=== PATIENT | male | born 1975 | race Caucasian/White ===

== ENCOUNTER 2023-03-09 12:46 | Outpatient (AMB) | payer OTHER, SELFPAY ==
--- NOTE | 2023-03-09 13:13 | MHC.PC.OV ---
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 Note: Pt is here to [facility] care and needs PE Allergies No Known Allergies Allergy (Verified 03/09/23 13:17) Medication List - Last Reconciled 03/09/23 by Carmen Flores MD No Known Home Meds Tobacco use date assessed: 03/09/23 Dental Screening Dental Screen Date: 03/09/23 Did you have a dental visit in the last 12 months?: Yes Did you have a dental problem in the last 6 months where you did not have access to dental care?: No Was dental information given to patient?: 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 Patient has a history of hypertension but try medication only for one day (unknown name) and developed side effects. Patient reports feeling out of breath with physical activity like walking up the stairs getting more worse over last few month. Patient denies cough PND orthopnea chest pain palpitations. 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 PFSH Family History (Updated 03/09/23 @ 13:51 by Carmen Flores MD) Father CAD (coronary artery disease), Onset Age: 75 Mother No problems noted. Social History (Updated 03/09/23 @ 13:53 by Carmen Folres MD) Household Members Other:: , 4 adult children, Housing: House Patient Tobacco Use Status: Former Tobacco user e-Cigarette/Vaping Use: Never Used Current occupational status: employed Current occupation: Currently and [employer] Cognitive needs: No Hearing needs: No Vision needs: No Review of Systems Const All systems reviewed & are unremarkable except as noted in HPI and below Reports no additional complaints Eyes Reports no additional complaints ENT Reports no additional complaints Card Reports no additional complaints Resp Reports no additional complaints GI Reports no additional complaints Reports no additional complaints Physical exam (Primary Care) Vital Signs: Last Vital Signs Pulse 84 03/09/23 13:15 BP 150/88 H 03/09/23 13:15 Pulse Ox 97 03/09/23 13:15 Oxygen Delivery Method Room Air 03/09/23 13:15 BMI result Body Mass Index 27.9 Tobacco/Smoking Status: Tobacco use Status Tobacco use date assessed 03/09/23 03/09/23 13:19 Patient Tobacco Use Status Former Tobacco user 03/09/23 13:53 e-Cigarette/Vaping Use Never Used 03/09/23 13:53 Const General: no acute distress HENMT Head: Yes normal to inspection Ears: hearing grossly normal bilaterally Face and sinus: Yes normal facial exam Eyes General: appearance normal, both eyes and all related structures Neck Neck: Yes no lymphadenopathy and Yes supple Resp Effort & Inspection: normal respiratory effort Auscultation: clear to auscultation bilaterally Cardio Rhythm: regular rhythm Heart sounds: S1 normal heart sound present and S2 normal heart sound present GI Inspection: Yes normal to inspection Palpation (GI): Soft to palpation Percussion: Yes normal to percussion Auscultation: normal bowel sounds Skin Other: Dysplastic nevi skin lesions on the back Assessment and Plan Assessment & Plan (1) Dysplastic nevi: Code(s): D23.9 - Other benign neoplasm of skin, unspecified Plan: Referred to dermatology (2) Annual physical exam: Code(s): Z00.00 - Encounter for general adult medical examination without abnormal findings Plan: Well-balanced diet regular physical activity discussed with the patient he will return for fasting blood work. 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 EKG showed normal sinus rhythm LVH. Echocardiogram will be obtained for symptoms of dyspnea on exertion to rule out wall motion abnormalities evaluate for ejection fraction. Start 5 mg of Olmesartan. Follow-up in 1 month (7) GRAJEDA (dyspnea on exertion): Code(s): R06.09 - Other forms of dyspnea Plan: Obtain echo (8) LVH (left ventricular hypertrophy): Code(s): I51.7 - Cardiomegaly Orders: Orders Comprehensive [place]. Panel Fast Today Z00.00 - Encounter for general adult medical examination without abnormal findings Complete Blood Count Auto Diff Today Z00.00 - Encounter for general adult medical examination without abnormal findings UA w Microscopic Today Z00.00 - Encounter for general adult medical examination without abnormal findings CA echo transthoracic complete Today I10 - Essential (primary) hypertension, I51.7 - Cardiomegaly, R06.09 - Other forms of dyspnea Lipid Panel Today Z00.00 - Encounter for general adult medical examination without abnormal findings PSA,Total (Free>4and<10) Today Z00.00 - Encounter for general adult medical examination without abnormal findings TSH reflex Free T4 Today Z00.00 - Encounter for general adult medical examination without abnormal findings AMB EKG-In Office Today I10 - Essential (primary) hypertension, I51.7 - Cardiomegaly, R06.09 - Other forms of dyspnea Referrals Dermatology Referral D23.9 - Other benign neoplasm of skin, unspecified, Z00.00 - Encounter for general adult medical examination without abnormal findings Gastroenterology Referral Z00.00 - Encounter for general adult medical examination without abnormal findings Medications: New hydrocortisone 2.5% (Proctosol HC) 1 appl [place] BID-QID PRN 30 grams 3RF hemorrhoids olmesartan 5 mg PO DAILY 30 tabs 1RF Coding Level of Care Code New Pt Prev Care 40-64y(91101) Diagnoses Dysplastic nevi D23.9 Annual physical exam Z00.00 S/P hernia surgery Z98.890; Z87.19 Hx of colonoscopy Z98.890 External bleeding hemorrhoids K64.4 HTN (hypertension) I10 GRAJEDA (dyspnea on exertion) R06.09 LVH (left ventricular hypertrophy) I51.7
[2023-03-09 13:15] VITALS: BP 150/88; PULSE 84; O2SAT 97; BMI 27.9
== END 2023-03-09 14:25 | disposition home or self-care (01) ==
PROVIDERS: Visit Provider Internal Medicine
DX: D23.9 Other benign neoplasm of skin, unspecified (principal); Z00.00 Encounter for general adult medical examination without abnormal findings; Z98.890 Other specified postprocedural states; Z87.19 Personal history of other diseases of the digestive system; K64.4 Residual hemorrhoidal skin tags; I10 Essential (primary) hypertension; R06.09 Other forms of dyspnea; I51.7 Cardiomegaly
CPT/HCPCS: 99386

== ENCOUNTER → 2023-03-30 13:34 | Outpatient (REF) | payer OTHER, SELFPAY ==
--- NOTE | 2023-03-30 13:40 | CA_ITS ---
Transthoracic Echocardiogram Patient (Last, First, Middle): Florencia Christian, Gender: Male Date of : 1975 Age: 47 Procedure Date: 03/30/2023 Procedure Type: Transthoracic Echocardiogram Location: OP Height: 182.88 cm Weight: 90.72 kg BSA: 2.13 m2 Heart Rate: bpm BP: 154 / 84 mmHg Morgue Technician: BLAIRE Referring MD: Carmen Flores MD Recreation Leader: Kirit Lee MD Symptoms: I10 - Essential (primary) hypertension Study Quality: Adequate ECG Rhythm: Sinus Conclusions: - Essentially normal study Findings Left Ventricle Normal left ventricular size, thickness, and systolic function. The visually estimated ejection fraction is between 60-65%. Spectral Doppler is indicative of a normal filling pattern. Peak GLS is -17.0%, borderline low. Right Ventricle Normal right ventricular cavity size and systolic function. Atria Both atria are normal in size. Interatrial shunt cannot be excluded. Aortic Valve The aortic valve structure and function is likely normal. There is no aortic valve stenosis. There is no aortic valve regurgitation. Mitral Valve Normal mitral valve structure and function. There is trace mitral valve regurgitation. There is no mitral valve stenosis. Pulmonic Valve The pulmonic valve is likely normal. Tricuspid Valve Likely normal tricuspid valve structure and function. Tricuspid regurgitation envelope is inadequate for calculation of right ventricular systolic pressure. Normal right atrial pressure. Great Vessels All visible segments of the aorta are normal in size. The pulmonary artery was not well visualized. Venous The inferior vena cava is normal in size and collapses greater than 50% with inspiration. Pericardium/Pleural There is no evidence of pericardial effusion. Prior Study Comparison No prior study available for comparison. Measurements 2D Linear Measurements IVSd: 0.88 0.6-0.9/0.6-1.0 cm LVIDd: 5.33 3.9-5.3/4.2-5.9 cm LVIDd Index: 2.50 2.4-3.2/2.2-3.1 cm/m2 LVIDs: 3.00 2.0-3.6 cm LVPWd: 0.80 0.7-1.1 cm LA Diam: 3.20 2.7-3.8/3.0-4.0 cm LAIDs Index: 1.50 1.5-2.3 cm/m2 LV Mass: 199.24 67-162/88-224 g LV Mass Index: 93.54 43-95/49-115 g/m2 LVOT Diam: 2.10 3.0+(-)1.3 cm 2D Systolic Function EF 4C: 59.30 >55% EF 2C: 64.50 >55% EF BiP: 62.90 >55% Mitral Valve MV Pk E: 0.67 MV PK A: 0.63 MV Decel Time: 182.00 E/A: 1.10 E'Lateral: 10.70 E'Medial: 8.05 E/E' Med: 8.40 E/E' Lat: 6.30 PHT: 53.00 MVA PHT: 4.15 Decel Orange: 3.69 Aortic Valve AoV Pk Daniel: 1.40 AoV Mn Daniel: 0.94 AoV VTI: 0.29 AoV Pk Grad: 8.00 Aov Mn Grad: 4.00 SCAR Cont.VTI: 2.27 LVOT LVOT Pk Daniel: 0.96 LVOT Mn Daniel: 0.63 LVOT VTI: 0.19 LVOT Pk Grad: 4.00 LVOT Mn Grad: 2.00 LVOT Diam: 2.10 LVOT Area: 3.46 Diastolic Function MV Pk E: 0.67 MV Pk A: 0.63 E/A: 1.10 E'Medial: 8.05 E/E' Med: 8.40 E' Laterial: 10.70 E/E' Lat: 6.30 Right Ventricle TAPSE (mm): 26.10 TVS' Daniel: 12.10 Tricuspid Valve RA Press: 8.00 Great Vessels Aorta Sinus of Valsalva: 4.06 2.0-3.[address] [place]: 3.13 1.7-3.4 cm Ao Asc: 3.40 2.1-3.4 cm Ao Arch: 2.40 Updated in Other Vendor System with Status of Final Kirit Lee MD electronically signed on 03/31/2023 4:15:34 PM with status of Final
== END ==
LOC: HO.CARD 13:34
PROVIDERS: Visit Provider Internal Medicine
DX: I10 Essential (primary) hypertension (principal); R06.09 Other forms of dyspnea; I51.7 Cardiomegaly
CPT/HCPCS: 93306; 93356

== ENCOUNTER → 2023-03-30 13:40 | Outpatient (BNV) | payer OTHER, SELFPAY | PROVIDERS: Visit Provider Internal Medicine Cardiovascular Disease | DX: I51.7 Cardiomegaly (principal) | CPT/HCPCS: 93306 ==

== ENCOUNTER 2023-04-09 06:34 | Outpatient (REF) | payer OTHER, SELFPAY ==
[2023-04-09 11:00] LABS: MANUAL DIFF FLAG NO
[2023-04-09 11:02] LABS: Basophils Percent Auto 0.7 % (0-2); Eosinophils Absolute Auto 0.1 X10*3/uL (0.0-0.4); Eosinophils Percent Auto 1.7 % (0-4); Hematocrit 44.3 % (42.0-52.0); Hemoglobin 14.8 g/dl (14.0-18.0); Imm Gran Abs Auto 0.01 X10*3/uL (0.00-0.03); Imm Gran Pct Auto 0.2 % (0.0-0.4); Lymphocytes Absolute Auto 1.6 X10*3/uL (1.2-4.9); Lymphocytes Percent Auto 39.3 % (20-40); Mean Corpuscular HGB Conc 33.4 g/dl (31.0-36.0); Mean Corpuscular Hemoglobin 29.7 pg (27.0-33.0); Mean Platelet Volume 10.5 fL (9.4-12.4); Monocytes Absolute Auto 0.3 X10*3/uL (0.1-1.2); Monocytes Percent Auto 7.5 % (2-11); Neutrophils Absolute Auto 2.1 x10*3/uL (2.0-8.3); Neutrophils Percent Auto 50.6 % (45-73); Platelet Count 223 X10*3/uL (160-400); Red Blood Count 4.98 X10*6/uL (4.60-5.80); Red Cell Distribution Width 11.7 % (11.0-16.0); White Blood Count 4.2 X10*3/uL (4.8-10.8)
[2023-04-09 11:19] LABS: Appearance Urine Clear; Color Urine Yellow; Glucose Urine UA Negative (Negative); Leukocyte Esterase Urine Negative (Negative); Nitrite Urine Negative (Negative); PH 5.5 (5.0-9.0); Urine Blood Negative (Negative); Urine Ketones Trace mg/dL (Negative); Urine Protein Negative (Neg-Trace)
[2023-04-09 11:23] LABS: Alanine Aminotransferase 52 U/L (0-40); Albumin Level 4.4 g/dL (3.5-5.0); Alkaline Phosphatase 60 U/L (39-117); Anion Gap 16 (12-20); Aspartate Amino Transferase 30 U/L (5-37); Bilirubin Total 0.6 mg/dL (0.0-1.0); Blood Urea Nitrogen 15 mg/dL (9-16); Calcium 9.8 mg/dL (8.4-10.2); Carbon Dioxide 26 mmol/L (22-29); Chloride 104 mmol/L (96-108); Cholesterol 265 mg/dL (<200); Estimated Glomerular Filt Rate > 60; Glucose Fasting 89 mg/dL (60-99); HDL Cholesterol 50 mg/dL (>40); LDL Cholesterol Calculated 176 mg/dL (<100); Potassium 3.9 mmol/L (3.3-5.1); Sodium 142 mmol/L (135-145); Total Protein 7.2 g/dL (6.5-8.0); Triglycerides 199 mg/dL (<150)
[2023-04-09 11:26] LABS: Bacteria Urine None Seen (None Seen); Hyaline Casts Urine 0-2 /LPF (0-2); RBC Urine 0-2 /HPF (0-2); Squamous Epithelial Cell Urine 0-2 /HPF (0-2); WBC Urine 0-5 /HPF (0-5)
[2023-04-09 11:40] LABS: TSH reflex Free T4 0.88 uIU/mL (0.32-4.0)
[2023-04-09 11:42] LABS: PSA,Total (Free>4and<10) 0.59 ng/mL (0.00-4.00)
== END 2023-04-09 06:35 | disposition home or self-care (01) ==
LOC: HO.HMGCLDS 06:34
PROVIDERS: PCP Internal Medicine; Visit Provider Internal Medicine
DX: Z00.00 Encounter for general adult medical examination without abnormal findings (principal); Z12.5 Encounter for screening for malignant neoplasm of prostate
CPT/HCPCS: 36415; 80053; 80061; 81001; 84153; 84443; 85025

== ENCOUNTER 2023-04-14 14:03 | Outpatient (AMB) | payer OTHER, SELFPAY ==
[2023-04-14 14:23] VITALS: BP 124/76; PULSE 89; O2SAT 98; BMI 27.8
--- NOTE | 2023-04-14 14:23 | A.OFFPC_ITS ---
Vital Signs 04/14/23 14:23 Height 6 ft Weight 205 lb BMI 27.8 BP 124/76 Blood Pressure Location Lt brachial Position Sitting Pulse 89 Pulse Source Pulse Oximeter Pulse Oximetry (%) 98 Oxygen Delivery Method Room Air Intake Visit Reasons: 1 month follow up Intake Note: Pt is here today for 1 month follow up visit on BP. Allergies No Known Allergies Allergy (Verified 04/14/23 14:24) Medication List - Last Reconciled 04/14/23 by Carmen Flores MD hydrocortisone 2.5% (Proctosol HC) 1 appl [place] BID-QID PRN olmesartan 5 mg PO DAILY Tobacco use date assessed: 03/09/23 HPI 1 month follow up HPI Details Patient presents for the follow-up on hypertension controlled on olmesartan. Patient had echocardiogram which showed normal ejection fraction and trace mitral regurgitation. [facility] Family History Father CAD (coronary artery disease), Onset Age: 75 Mother No problems noted. Social History (Updated 03/09/23 @ 13:53 by Carmen Flores MD) Household Members Other:: , 4 adult children, Housing: House Patient Tobacco Use Status: Former Tobacco user e-Cigarette/Vaping Use: Never Used Current occupational status: employed Current occupation: [employer] Cognitive needs: No Hearing needs: No Vision needs: No Review of Systems Const All systems reviewed & are unremarkable except as noted in HPI and below Reports no additional complaints Eyes Reports no additional complaints ENT Reports no additional complaints Card Reports no additional complaints Resp Reports no additional complaints GI Reports no additional complaints Reports no additional complaints Physical exam (Primary Care) Vital Signs: Last Vital Signs Pulse 89 04/14/23 14:23 BP 124/76 04/14/23 14:23 Pulse Ox 98 04/14/23 14:23 Oxygen Delivery Method Room Air 04/14/23 14:23 BMI result Body Mass Index 27.8 Tobacco/Smoking Status: Tobacco use Status Tobacco use date assessed 03/09/23 04/14/23 14:26 Patient Tobacco Use Status Former Tobacco user 04/14/23 14:26 e-Cigarette/Vaping Use Never Used 04/14/23 14:26 Const General: no acute distress HENMT Face and sinus: Yes normal facial exam Eyes General: appearance normal, both eyes and all related structures Resp Effort & Inspection: normal respiratory effort Auscultation: clear to auscultation bilaterally Cardio Rhythm: regular rhythm Heart sounds: S1 normal heart sound present and S2 normal heart sound present Assessment and Plan Assessment & Plan (1) HTN (hypertension): Code(s): I10 - Essential (primary) hypertension Plan: Continue olmesartan (2) Hyperlipidemia: Code(s): E78.5 - Hyperlipidemia, unspecified Plan: Low-cholesterol diet increase physical activity taking fish oil supplement discussed with the patient , follow-up in 4 months with a fasting labs before Orders: Orders Lipid Panel 4 Months E78.5 - Hyperlipidemia, unspecified, I10 - Essential (primary) hypertension Comprehensive [place]. Panel Fast 4 Months E78.5 - Hyperlipidemia, unspecified, I10 - Essential (primary) hypertension Medications: Refilled olmesartan 5 mg PO DAILY 90 tabs 3RF Coding Level of Care Code Est Pt Level 3 (42348) Diagnoses HTN (hypertension) I10 Hyperlipidemia E78.5
== END 2023-04-14 15:13 | disposition home or self-care (01) ==
PROVIDERS: Visit Provider Internal Medicine
DX: I10 Essential (primary) hypertension (principal); E78.5 Hyperlipidemia, unspecified
CPT/HCPCS: 99213

== ENCOUNTER 2024-03-28 08:21 | Outpatient (AMB) | payer OTHER, SELFPAY ==
[2024-03-28 08:29] VITALS: BP 138/88; PULSE 99; TEMP 36.8; O2SAT 96; BMI 27.9
--- NOTE | 2024-03-28 08:29 | A.OFFPC_ITS ---
Vital Signs 03/28/24 08:29 Height 6 ft Weight 206 lb BMI 27.9 BP 138/88 Blood Pressure Location Rt brachial Position Sitting Pulse 99 Pulse Source Pulse Oximeter Temp 98.2 F Temp Source Oral Pulse Oximetry (%) 96 Oxygen Delivery Method Room Air Intake Visit Reasons: Annual PE Intake Note: Pt is here today for PE. Pt needs a refill on his BP medication he took his last pill yesterday. Allergies No Known Allergies Allergy (Verified 03/28/24 08:30) Medication List - Last Reconciled 03/28/24 by Carmen Flores MD hydrocortisone 2.5% (Proctosol HC) 1 appl [place] BID-QID PRN olmesartan 5 mg PO DAILY Tobacco use date assessed: 03/28/24 Dental Screening Dental Screen Date: 03/28/24 Did you have a dental visit in the last 12 months?: Yes Did you have a dental problem in the last 6 months where you did not have access to dental care?: No Was dental information given to patient?: Patient has dentist HPI Annual PE HPI Details Patient presents for physical. He has been taking olmesartan regularly but reports higher blood pressure readings at home for the last 2 months up to 140/80. Patient denies chest pain shortness or breath, headaches. Patient reports discomfort in the right groin burning like sensation positional worse when bending forward. Patient denies change in bowel habits, abdominal pain, nausea vomiting fever chills. He had a left inguinal hernia repair over 5 years ago. [facility] Surgical History (Updated 03/28/24 @ 08:35 by JANIYA Mclaughlin) S/P hernia surgery Family History (Updated 03/28/24 @ 08:35 by JANIYA Mclaughlin) Father CAD (coronary artery disease), Onset Age: 75 Mother No problems noted. Social History Household Members Other:: , 4 adult children, Housing: House Patient Tobacco Use Status: Former Tobacco user e-Cigarette/Vaping Use: Never Used service: No Current occupational status: employed Current occupation: [employer] Cognitive needs: No Hearing needs: No Vision needs: No Questionnaire PHQ-9 Over the last 2 weeks, how often have you been bothered by any of the following problems? 1. Little interest or pleasure in doing things: not at all 2. Feeling down, depressed, or hopeless: not at all 3. Trouble falling or staying asleep, or sleeping too much: not at all 4. Feeling tired or having little energy: not at all 5. Poor appetite or overeating: not at all 6. Feeling bad about yourself - or that you are a failure or have let yourself or your family down: not at all 7. Trouble concentrating on things, such as reading the newspaper or watching television: not at all 8. Moving or speaking so slowly that other people could have noticed. Or the opposite - being so fidgety or restless that you have been moving around a lot more than usual: not at all 9. Thoughts that you would be better off or of hurting yourself in some way: not at all Total score: 0 Depression Screening Interpretation: Negative Depression Screening Done: Yes [id number] - PHQ-9 Billing: Yes Source: Developed by Drs. Ryder Khan, Linda Richardson, Axel Deluna and colleagues, with an educational marcial from [employer]. Thrive Questionnaire Date Thrive assessed: 03/28/24 I am a: Patient What is your living situation today?: I have a steady place to live Within the past 12 months, did the food you bought not last and you didn't have the money to get more?: I choose not to answer this question Within the past 12 months, did you worry whether your food would run out before you got money to buy more?: I choose not to answer this question Do you have trouble paying for medicines?: No Do you have trouble getting transportation to medical appointments?: No Do you have trouble paying your heating and electricity bill?: No Do you have trouble taking care of your child, family member or friend?: No Do you have trouble with day-to-day activities such as bathing, preparing meals, shopping, managing finances, etc.?: No Are you currently unemployed and looking for a job?: No Are you interested in more education?: No THRIVE Score: 0 AUDIT C Alcohol Use Questionnaire (AUDIT-C) 1. How often do you have a drink containing alcohol?: 2-3 times a week 2. How many drinks containing alcohol do you have on a typical day when you are drinking?: 1 or 2 3. How often do you have six or more drinks on one occasion?: Less than monthly Total Score: 4 RICARDO-7 AMB Questionnaire RICARDO-7 Date RICARDO - 7 assessed: 03/28/24 Feeling nervous, anxious, or on edge: 2 = More than half the days Not being able to stop or control worryin = More than half the days Worrying too much about different things: 2 = More than half the days Trouble relaxin = Several days Being so restless that it is hard to sit still: 0 = Not at all Becoming easily annoyed or irritable: 0 = Not at all Feeling afraid as if something awful might happen: 0 = Not at all Total RICARDO-7 score (0-4 normal; 5-9 mild; 10-14 moderate; 15-21 severe): 7 Source: Developed by Drs. Ryder Khan, Linda Richardson, Axel Deluna and colleagues, with an educational marcial from [employer]. RICARDO-7 Assessment Billing RICARDO-7 Assessment Tool: RICARDO-7 Assessment 22847 Review of Systems Const All systems reviewed & are unremarkable except as noted in HPI and below Reports no additional complaints Eyes Reports no additional complaints ENT Reports no additional complaints Card Reports no additional complaints Resp Reports no additional complaints GI Reports no additional complaints Reports no additional complaints Physical exam (Primary Care) Vital Signs: Last Vital Signs Temp 98.2 F 03/28/24 08:29 Pulse 99 03/28/24 08:29 Pulse Ox 96 03/28/24 08:29 Oxygen Delivery Method Room Air 03/28/24 08:29 BMI result Body Mass Index 27.9 Tobacco/Smoking Status: Tobacco use Status Tobacco use date assessed 03/28/24 03/28/24 08:35 Patient Tobacco Use Status Former Tobacco user 03/28/24 08:35 e-Cigarette/Vaping Use Never Used 03/28/24 08:35 PHQ-9: PHQ-9 Score PHQ-9: Total score 0 03/28/24 08:35 Depression Screening Interpretation: Negative Thrive Assessment: Date of Thrive Assessment Date Thrive assessed 03/28/24 03/28/24 08:35 Const General: no acute distress HENMT Head: Yes normal to inspection Ears: hearing grossly normal bilaterally Face and sinus: Yes normal facial exam Eyes General: appearance normal, both eyes and all related structures Neck Neck: Yes no lymphadenopathy and Yes supple Resp Effort & Inspection: normal respiratory effort Auscultation: clear to auscultation bilaterally Cardio Rhythm: regular rhythm Heart sounds: S1 normal heart sound present and S2 normal heart sound present GI Inspection: Yes normal to inspection Palpation (GI): Soft to palpation and Tenderness to palpation present (GI) in th e LLQ; with no rebound tenderness Percussion: Yes normal to percussion Auscultation: normal bowel sounds General: Yes Bimanual renal exam normal bilaterally Coding Level of Care Code Est Pt Prev Care 40-64y(29546) Diagnoses Inguinal hernia K40.90 Hyperlipidemia E78.5 HTN (hypertension) I10 Annual physical exam Z00.00 Additional Codes RICARDO-7 Assessment Billing - RICARDO-7 Assessment Tool: RICARDO-7 Assessment 41654 ([id number]) PHQ-9 - 72876 - PHQ-9 Billing: Yes ([id number]) Assessment & Plan Assessment & Plan (1) Inguinal hernia: Comment: left Code(s): K40.90 - Unilateral inguinal hernia, without obstruction or gangrene, not specified as recurrent Category: Medical Plan: Chronic recurrent left inguinal area pain ultrasound will be obtained and pat ient will be referred to a surgeon to evaluate for recurrent hernia (2) Hyperlipidemia: Code(s): E78.5 - Hyperlipidemia, unspecified Category: Medical Plan: Low-cholesterol diet discussed with the patient, he will return for fasting blood work (3) HTN (hypertension): Code(s): I10 - Essential (primary) hypertension Category: Medical Plan: Increase olmesartan to 10 mg a day follow-up in 2 months (4) Annual physical exam: Code(s): Z00.00 - Encounter for general adult medical examination without abnormal findings Category: Medical Plan: Well-balanced diet regular physical activity discussed with the patient. He will be referred again to GI for screening colonoscopy Orders: Orders UA w Microscopic Today E78.5 - Hyperlipidemia, unspecified, I10 - Essential (primary) hypertension, Z00.00 - Encounter for general adult medical examination without abnormal findings Comprehensive [place]. Panel Fast Today E78.5 - Hyperlipidemia, unspecified, I10 - Essential (primary) hypertension, Z00.00 - Encounter for general adult medical examination without abnormal findings Complete Blood Count Auto Diff Today E78.5 - Hyperlipidemia, unspecified, I10 - Essential (primary) hypertension, Z00.00 - Encounter for general adult medical examination without abnormal findings Lipid Panel Today E78.5 - Hyperlipidemia, unspecified, I10 - Essential (primary) hypertension, Z00.00 - Encounter for general adult medical examination without abnormal findings PSA,Total (Free>4and<10) Today E78.5 - Hyperlipidemia, unspecified, I10 - Essential (primary) hypertension, Z00.00 - Encounter for general adult medical examination without abnormal findings US pelvic limited Today E78.5 - Hyperlipidemia, unspecified, I10 - Essential (primary) hypertension, K40.90 - Unilateral inguinal hernia, without obstruction or gangrene, not specified as recurrent, Z00.00 - Encounter for general adult medical examination without abnormal findings Referrals Gastroenterology Referral Z00.00 - Encounter for general adult medical examination without abnormal findings General Surgery Referral E78.5 - Hyperlipidemia, unspecified, I10 - Essential (primary) hypertension, K40.90 - Unilateral inguinal hernia, without obstruction or gangrene, not specified as recurrent, Z00.00 - Encounter for general adult medical examination without abnormal findings Medications: Refilled olmesartan 5 mg PO DAILY 180 tabs 3RF
== END 2024-03-28 09:13 | disposition home or self-care (01) ==
PROVIDERS: PCP Internal Medicine; Visit Provider Internal Medicine
DX: K40.90 Unilateral inguinal hernia, without obstruction or gangrene, not specified as recurrent (principal); E78.5 Hyperlipidemia, unspecified; I10 Essential (primary) hypertension; Z00.00 Encounter for general adult medical examination without abnormal findings

== ENCOUNTER → 2024-03-28 08:21 | Outpatient (BNVA) | payer OTHER, SELFPAY | PROVIDERS: PCP Internal Medicine; Visit Provider Internal Medicine | DX: Z00.00 Encounter for general adult medical examination without abnormal findings (principal); K40.90 Unilateral inguinal hernia, without obstruction or gangrene, not specified as recurrent; E78.5 Hyperlipidemia, unspecified; I10 Essential (primary) hypertension; Z79.899 Other long term (current) drug therapy | CPT/HCPCS: 96127 ==

== ENCOUNTER 2024-04-02 15:53 | Outpatient (AMB) | payer OTHER, SELFPAY ==
--- NOTE | 2024-04-02 15:54 | A.OFFVIS_ITS ---
Vital Signs 04/02/24 15:57 Height 6 ft Weight 206 lb 8 oz BMI 28.0 Intake Visit Reasons: hernia Intake Note: This patient presents for hernia assessment. Pt c/o; Onset over 5 years, left groin, discomfort, reports he had a left inguinal hernia repair over 5 years ago and he is feeling discomfort on the previous surgical site, denies changes in bowel habits, abdominal pain, nausea, vomiting, fever or chills. Manager Business Planning Required: Yes Manager Business Planning Language: Icelandic Manager Business Planning Services: Manager Business Planning Offered & Declined Accompanied by: Family/Other Allergies No Known Allergies Allergy (Verified 04/02/24 15:59) Medication List - Last Reconciled 04/02/24 by Prabhakar Figueroa MD hydrocortisone 2.5% (Proctosol HC) 1 appl [place] BID-QID PRN olmesartan 5 mg PO DAILY HPI HPI hernia: Details: 50-year-old male referred for a question of a recurrent hernia. He had a left inguinal hernia repair about 5 years ago done in [place], [place]. He says that since that time he has been having this pain on the incision on the left groin. He says that this has done all the time. He says that he is now worried that there may be a ?cancer? in the area of the surgery. He says that he knows a friend was repair of a left inguinal hernia and had cancer near the area of the surgery He denies any GI complaints. He seems to be feeling well overall. He does not feel a mass on the left groin.. [facility] Medical History Left groin pain Surgical History S/P hernia surgery Family History Father CAD (coronary artery disease), Onset Age: 75 Mother No problems noted. Social History Household Members Other:: , 4 adult children, Housing: House Patient Tobacco Use Status: Former Tobacco user e-Cigarette/Vaping Use: Never Used service: No Current occupational status: employed Current occupation: [employer] Cognitive needs: No Hearing needs: No Vision needs: No Review of Systems Const Denies chills and Denies fever(s) Card Denies chest pain, Denies dyspnea and Denies dyspnea on exertion Resp Denies cough, Denies dyspnea and Denies dyspnea on exertion GI Denies hematochezia and Denies change in bowel habits Denies hematuria and Denies difficulty urinating Musc Denies back pain and Denies limited range of motion Neuro Denies focal weakness and Denies convulsions Psych Denies depression and Denies mood swings Physical Exam Vital Signs: BMI result Body Mass Index 28.0 Const General: comfortable and no acute distress Orientation/consciousness: patient oriented x3 Neck Neck: Yes no lymphadenopathy Resp Auscultation: clear to auscultation bilaterally Cardio Rhythm: regular rhythm GI Other: No palpable mass on the left groin even with Valsalva, no tenderness, no lesion noted Palpation (GI): Soft to palpation, nontender and no guarding Neuro General: patient oriented x3 Assessment & Plan Assessment & Plan (1) Left groin pain: Code(s): R10.32 - Left lower quadrant pain Category: Medical Plan: He has this left groin pain since he had left inguinal hernia repair in another institution 5 years ago. He is worried that he may be developing a ?cancer? in the area. He also says that he feels that the pain has been a recurrent Current exam does not reveal a hernia. I do not feel any reducible mass. I will schedule him for a CT scan of the abdomen and pelvis to look for any occult hernia on the area. I will see him in the office thereafter to review the findings. Coding Level of Care Code New Pt Level 3 (13846) Diagnoses Left groin pain R10.32
[2024-04-02 15:57] VITALS: BMI 28.0
--- OUTSIDE RECORDS SUMMARY | 2024-04-02 17:09 | XMS_ITS | Clinical Summary ---
Author Organization [employer] Address [address] [place] [id number] Care Team Providers Care Valve Inspector Name Role Phone No, Pcp Primary Care Provider Unavailabl e Allergies No known active allergies Medications Medication Sig Dispensed Refills Start Date End Date Status hydrOXYzine HCL (ATARAX) 25 mg tabletIndications:Sit uational anxiety Take one tablet by mouth 30 min to 1 hour before your flight, may cause drowsiness. Can take up to 3 times daily if needed for anxiety. 15 tablet 12/10/2020 Active Active Problems Problem Noted Date Diagnosed Date Situational anxiety 12/10/2020 Elevated BP without diagnosis of hypertension Family History Relation Status Comments Father Mother Alive Social History Tobacco Use Types Packs/Day Years Used Date Smoking Tobacco: Never Smokeless Tobacco: Never Alcohol Use Standard Drinks/Week Comments Yes 0 (1 standard drink = 0.6 oz pur e alcohol) PHQ-2 Answer Date Recorded Depression Risk (PHQ2) Score 0 Sex and Gender Information Value Date Recorded Sex Assigned at Not on file Gender Identity Not on file Sexual Orientation Not on file Last Filed Vital Signs Vital Sign Reading Time Taken Comments Blood Pressure 152/95 12/10/2020 11:15 AM EDT Pulse 82 12/10/2020 11:15 AM EDT Temperature 36.3 ??C (97.4 ??F) 12/10/2020 1 1:15 AM EDT Respiratory Rate 14 03/28/2020 11:4 9 AM EST Oxygen Saturation 98% 12/10/2020 11: 15 AM EDT Inhaled Oxygen Concentration - - Weight 87.5 kg (192 lb 12.8 oz) 021 11:15 AM EDT Height 184.8 cm (6' 0.74 ) 03/28/2020 1 1:49 AM EST Body Mass Index 25.62 03/28/2020 11:49 AM EST Plan of Treatment Health Maintenance Due Date Last Done Comments CT Colonography 1973 Cologuard 1973 Colonoscopy 1973 Colorectal Cancer Screening 1973 FOBT/FIT 1973 Hepatitis C Screening 1973 Sigmoidoscopy 1973 PHQ-9 Depression Screen 1985 Annual Preventive Exam 09/26/1991 Complete Annual HRA 09/26/1991 RICARDO-7 Anxiety Screen 09/26/1991 DTaP,Tdap,and Td Vaccines (1 - Tdap) 1992 Zoster Vaccines (1 of 2) 09/26/2023 COVID-19 Vaccine (1 - 2023- season) 2023 Influenza Vaccine (#1) 2023 RSV Vaccine (SCDM) (1 - 1-dose 75+ series) 2048 Care Teams Valve Inspector Relationship Specialty Start Date End Date No, Pcp PCP - General 03/28/20
== END 2024-04-02 16:07 | disposition home or self-care (01) ==
PROVIDERS: PCP Internal Medicine; Visit Provider Surgery
DX: R10.32 Left lower quadrant pain (principal)
CPT/HCPCS: 99203

== ENCOUNTER → 2024-04-02 15:53 | Outpatient (BNVA) | payer OTHER, SELFPAY | PROVIDERS: PCP Internal Medicine; Visit Provider Surgery ==

== ENCOUNTER 2024-04-06 15:26 | Outpatient (REF) | payer OTHER, SELFPAY ==
--- NOTE | ~2024-04-06 | US_ITS ---
EXAMINATION: US SOFT TISSUES SLIGHTLY ABOVE THE AREA OF PRIOR LEFT INGUINAL REPAIR, LEFT LOWER QUADRANT LIMITED/FOLLOW UP CLINICAL INFORMATION: Status post LEFT inguinal hernia repair, area of concern LEFT lower quadrant, slightly above area of hernia repair. COMPARISON: None available. TECHNIQUE: Targeted ultrasound images were obtained by the sole skiver of the area of concern as indicated by the patient Radiologist was not in attendance. Images were later provided for interpretation. FINDINGS: Multiple scattered hyperechoic areas are identified in the area of concern indicated by the patient in the LEFT lower quadrant, just superior to the area of the LEFT inguinal hernia repair. The largest is located in the superficial soft tissues and measures 0.8 x 0.5 x 0.9 cm and appears hyperechoic with well-defined margins and no significant internal vascularity. US/US pelvic limited IMPRESSION: Multiple hyperechoic areas in the superficial soft tissues of the area of concern indicated by the patient just superior to the LEFT inguinal hernia repair, in the LEFT lower quadrant. The largest measures 0.9 cm and appears solid and hyperechoic with well-defined margins and no internal vascularity. Correlation with clinical exam and surgical history recommended to determine further management. Electronically signed by: Sally Ambrose MD 04/09/2024 05:44 AM [facility]
--- OUTSIDE RECORDS SUMMARY | 2024-04-06 15:29 | XMS_ITS | Clinical Summary ---
Author Organization [employer] Address [address] [place] [address] Care Team Providers Care Electrical Worker Name Role Phone No, Pcp Primary Care [...] - 1-dose 75+ series) 2048 Care Teams Electrical Worker Relationship Specialty Start Date End Date No, Pcp PCP - General 03/28/20
== END 2024-04-06 15:27 | disposition home or self-care (01) ==
LOC: HO.HMGCX 15:26
PROVIDERS: PCP Internal Medicine; Visit Provider Internal Medicine
DX: K40.90 Unilateral inguinal hernia, without obstruction or gangrene, not specified as recurrent (principal); E78.5 Hyperlipidemia, unspecified; I10 Essential (primary) hypertension
CPT/HCPCS: 76857

== ENCOUNTER 2024-05-23 06:06 | Outpatient (REF) | payer OTHER, SELFPAY ==
[2024-05-23 10:12] LABS: MANUAL DIFF FLAG NO
[2024-05-23 10:21] LABS: Appearance Urine Turbid; Color Urine Yellow; Glucose Urine UA Negative (Negative); Leukocyte Esterase Urine Negative (Negative); Nitrite Urine Negative (Negative); Urine Blood Negative (Negative); Urine Ketones Negative (Negative); Urine Protein Negative (Neg-Trace)
[2024-05-23 10:28] LABS: Bacteria Urine None Seen (None Seen); Hyaline Casts Urine 0-2 /LPF (0-2); RBC Urine 0-2 /HPF (0-2); Squamous Epithelial Cell Urine 0-2 /HPF (0-2); WBC Urine 0-5 /HPF (0-5)
[2024-05-23 10:31] LABS: Basophils Percent Auto 0.8 % (0-2); Eosinophils Absolute Auto 0.1 X10*3/uL (0.0-0.4); Eosinophils Percent Auto 1.8 % (0-4); Hematocrit 42.3 % (42.0-52.0); Hemoglobin 13.8 g/dl (14.0-18.0); Imm Gran Abs Auto 0.02 X10*3/uL (0.00-0.03); Imm Gran Pct Auto 0.4 % (0.0-0.4); Lymphocytes Absolute Auto 1.8 X10*3/uL (1.2-4.9); Lymphocytes Percent Auto 35.8 % (20-40); Mean Corpuscular HGB Conc 32.6 g/dl (31.0-36.0); Mean Corpuscular Hemoglobin 28.6 pg (27.0-33.0); Mean Corpuscular Volume 87.6 fL (80.0-98.0); Mean Platelet Volume 10.3 fL (9.4-12.4); Monocytes Absolute Auto 0.4 X10*3/uL (0.1-1.2); Monocytes Percent Auto 7.3 % (2-11); Neutrophils Absolute Auto 2.7 x10*3/uL (2.0-8.3); Neutrophils Percent Auto 53.9 % (45-73); Platelet Count 232 X10*3/uL (160-400); Red Blood Count 4.83 X10*6/uL (4.60-5.80); Red Cell Distribution Width 12.5 % (11.0-16.0); White Blood Count 4.9 X10*3/uL (4.8-10.8)
[2024-05-23 11:06] LABS: Alanine Aminotransferase 73 U/L (0-40); Albumin Level 4.2 g/dL (3.5-5.0); Alkaline Phosphatase 49 U/L (39-117); Anion Gap 10 (12-20); Aspartate Amino Transferase 35 U/L (5-37); Bilirubin Total 0.4 mg/dL (0.0-1.0); Blood Urea Nitrogen 15 mg/dL (9-16); Calcium 9.2 mg/dL (8.4-10.2); Carbon Dioxide 27 mmol/L (22-29); Chloride 107 mmol/L (96-108); Cholesterol 277 mg/dL (<200); Estimated Glomerular Filt Rate > 60; Glucose Fasting 93 mg/dL (60-99); HDL Cholesterol 50 mg/dL (>40); LDL Cholesterol Calculated 198 mg/dL (<100); Potassium 4.2 mmol/L (3.3-5.1); Sodium 140 mmol/L (135-145); Total Protein 6.8 g/dL (6.5-8.0); Triglycerides 146 mg/dL (<150)
[2024-05-23 11:12] LABS: PSA,Total (Free>4and<10) 1.43 ng/mL (0.00-4.00)
== END 2024-05-23 06:07 | disposition home or self-care (01) ==
LOC: HO.HMGCLDS 06:06
PROVIDERS: PCP Internal Medicine; Visit Provider Internal Medicine
DX: Z00.00 Encounter for general adult medical examination without abnormal findings (principal); I10 Essential (primary) hypertension; E78.5 Hyperlipidemia, unspecified; Z12.5 Encounter for screening for malignant neoplasm of prostate
CPT/HCPCS: 36415; 80053; 80061; 81001; 84153; 85025

== ENCOUNTER 2024-05-28 13:49 | Outpatient (AMB) | payer OTHER, SELFPAY ==
[2024-05-28 14:09] VITALS: BP 124/78; PULSE 88; RESP 18; TEMP 36.9; O2SAT 99; BMI 27.9
--- NOTE | 2024-05-28 14:09 | A.OFFPC_ITS ---
Vital Signs 05/28/24 14:09 Height 6 ft Weight 206 lb BMI 27.9 BP 124/78 Blood Pressure Location Rt brachial Position Sitting Respiration 18 Pulse 88 Pulse Source Pulse Oximeter Temp 98.4 F Temp Source Oral Pulse Oximetry (%) 99 Oxygen Delivery Method Room Air Intake Visit Reasons: 2 months f/up Intake Note: Pt is here today for 2 months follow up visit on albs. Allergies No Known Allergies Allergy (Verified 05/28/24 14:11) Medication List - Last Reconciled 05/28/24 by Carmen Flores MD hydrocortisone 2.5% (Proctosol HC) 1 appl [place] BID-QID PRN olmesartan 5 mg PO DAILY pravastatin 40 mg PO BEDTIME Tobacco use date assessed: 05/28/24 Dental Screening Dental Screen Date: 03/28/24 HPI 2 months f/up HPI Details Patient presents for the follow-up of hypertension hyperlipidemia. He has been tolerating 10 mg of olmesartan and following low-cholesterol diet PFSH Medical History Left groin pain Surgical History S/P hernia surgery Family History Father CAD (coronary artery disease), Onset Age: 75 Mother No problems noted. Social History Household Members Other:: , 4 adult children, Housing: House Patient Tobacco Use Status: Former Tobacco user e-Cigarette/Vaping Use: Never Used service: No Current occupational status: employed Current occupation: [employer] Cognitive needs: No Hearing needs: No Vision needs: No Questionnaire Thrive Questionnaire Date Thrive assessed: 03/23/24 I am a: Patient What is your living situation today?: I have a steady place to live Within the past 12 months, did the food you bought not last and you didn't have the money to get more?: I choose not to answer this question Within the past 12 months, did you worry whether your food would run out before you got money to buy more?: I choose not to answer this question Do you have trouble paying for medicines?: No Do you have trouble getting transportation to medical appointments?: No Do you have trouble paying your heating and electricity bill?: No Do you have trouble taking care of your child, family member or friend?: No Do you have trouble with day-to-day activities such as bathing, preparing meals, shopping, managing finances, etc.?: No Are you currently unemployed and looking for a job?: No Are you interested in more education?: No THRIVE Score: 0 RICARDO-7 AMB Questionnaire RICARDO-7 Date RICARDO - 7 assessed: 03/28/24 Source: Developed by Drs. Ryder Khan, Linda Richardson, Axel Deluna and colleagues, with an educational marcial from [employer]. Review of Systems Const All systems reviewed & are unremarkable except as noted in HPI and below Reports no additional complaints Eyes Reports no additional complaints ENT Reports no additional complaints Card Reports no additional complaints Resp Reports no additional complaints GI Reports no additional complaints Reports no additional complaints Physical exam (Primary Care) Vital Signs: Last Vital Signs Temp 98.4 F 05/28/24 14:09 Pulse 88 05/28/24 14:09 Resp 18 05/28/24 14:09 BP 124/78 05/28/24 14:09 Pulse Ox 99 05/28/24 14:09 Oxygen Delivery Method Room Air 05/28/24 14:09 BMI result Body Mass Index 27.9 Tobacco/Smoking Status: Tobacco use Status Tobacco use date assessed 05/28/24 05/28/24 14:11 Patient Tobacco Use Status Former Tobacco user 05/28/24 14:11 e-Cigarette/Vaping Use Never Used 05/28/24 14:09 Thrive Assessment: Date of Thrive Assessment Date Thrive assessed 03/23/24 05/28/24 14:09 Const General: no acute distress HENMT Head: Yes normal to inspection Face and sinus: Yes normal facial exam Mouth: Normal oral and palatal mucosa present Throat: Yes posterior oropharynx normal Eyes General: appearance normal, both eyes and all related structures Pupils: Equal, round and reactive pupils present Neck Neck: Yes no lymphadenopathy and Yes supple Resp Effort & Inspection: normal respiratory effort Auscultation: clear to auscultation bilaterally Cardio Rhythm: regular rhythm Heart sounds: S1 normal heart sound present and S2 normal heart sound present GI Inspection: Yes normal to inspection Neuro Cranial nerves: Yes Equal, round and reactive pupils present Coding Level of Care Code Est Pt Level 4 (61704) Diagnoses Hyperlipidemia E78.5 Migraine G43.909 HTN (hypertension) I10 Assessment & Plan Assessment & Plan (1) Hyperlipidemia: Code(s): E78.5 - Hyperlipidemia, unspecified Category: Medical Plan: Continue low-cholesterol diet start pravastatin 40 mg a day follow-up in 2 months with a fasting labs before (2) Migraine: Comment: 4 days out of the month, Code(s): G43.909 - Migraine, unspecified, not intractable, without status migrainosus Category: Medical Plan: Continue ibuprofen migraine as needed. Patient can miss up to 4 days of work in a month because of migraine attack (3) HTN (hypertension): Code(s): I10 - Essential (primary) hypertension Category: Medical Plan: Continue olmesartan Orders: Orders Comprehensive Carmen. Panel Fast 2 Months E78.5 - Hyperlipidemia, unspecified, K64.4 - Residual hemorrhoidal skin tags Lipid Panel 2 Months E78.5 - Hyperlipidemia, unspecified, K64.4 - Residual hemorrhoidal skin tags Medications: New pravastatin 40 mg PO BEDTIME 90 tabs 0RF Changed From olmesartan 5 mg PO DAILY 180 tabs 3RF To olmesartan 10 mg (2 x 5 mg) PO DAILY 180 tabs 3RF
--- OUTSIDE RECORDS SUMMARY | 2024-05-28 15:34 | XMS_ITS | Clinical Summary ---
Author Organization [employer] Address [address] [place] [id number] Care Team Providers Care Relocation Coordinator Name Role Phone No, Pcp Primary Care Provider Unavailabl e Allergies No known active allergies Medications hydrOXYzine HCL (ATARAX) 25 mg tabletIndication s:Situational anxiety Take one tablet by mouth 30 [...] Recorded Sex Assigned at Not on file Legal Sex Male 9:16 AM [facility] Gender Identity Not on file Sexual Orientation [...] DTaP,Tdap,and Td Vaccines (1 - Tdap) 1992 Pneumococcal Vaccine: 50+ Years (1 of 1 - PCV) 024 Zoster Vaccines (1 of 2) 09/26/2023 COVID-19 Vaccine (1 - 2023-25 season) 2023 Influenza Vaccine (#1) 2023 RSV Vaccine (SCDM) (1 - 1-dose 75+ series) 2048 Insurance [employer] Care Teams Relocation Coordinator Relationship Specialty Start Date End Date No, Pcp PCP - General 03/28/20
== END 2024-05-28 15:20 | disposition home or self-care (01) ==
LOC: HO.HMCC 13:50
PROVIDERS: PCP Internal Medicine; Visit Provider Internal Medicine
DX: E78.5 Hyperlipidemia, unspecified (principal); G43.909 Migraine, unspecified, not intractable, without status migrainosus; I10 Essential (primary) hypertension

== ENCOUNTER 2024-05-29 16:16 | Outpatient (REF) | payer OTHER, SELFPAY ==
--- NOTE | ~2024-05-29 | CT_ITS ---
CLINICAL HISTORY: R10.32 - Left lower quadrant pain CT abdomen and pelvis without contrast Comparison: None Findings: Lung bases clear. No acute bony abnormalities. Fatty infiltration of the liver without focal abnormality.. Pancreas, Spleen and adrenal glands unremarkable. Gallbladder within normal limits. No bilateral renal stone or hydronephrosis. No focal renal abnormality or ureteral dilation. No evidence for aortic aneurysm. No free fluid or adenopathy in the pelvis. No diverticulitis. Appendix unremarkable. Impression: No acute processes This document has been electronically signed by: Steven Deal MD on 05/30/2024 19:45:33
--- OUTSIDE RECORDS SUMMARY | 2024-05-29 18:48 | XMS_ITS | Clinical Summary ---
Author Organization [employer] Address [address] [place] [id number] Care Team Providers Care Middle School Teacher Name Role Phone No, Pcp Primary Care [...] on file Legal Sex Male 9:16 AM [facility] Gender Identity Not on file [...] 75+ series) 2048 Insurance [employer] Care Teams Middle School Teacher Relationship Specialty Start Date End Date No, Pcp PCP - General 03/28/20
== END 2024-05-29 16:17 | disposition home or self-care (01) ==
LOC: HO.CT 16:16
PROVIDERS: PCP Internal Medicine; Visit Provider Surgery
DX: R10.32 Left lower quadrant pain (principal)
CPT/HCPCS: 74176

== ENCOUNTER → 2024-05-29 16:18 | Outpatient (BNV) | payer OTHER, SELFPAY | PROVIDERS: PCP Internal Medicine; Visit Provider Radiology Diagnostic Radiology | DX: R10.32 Left lower quadrant pain (principal) | CPT/HCPCS: 74176 ==

== ENCOUNTER 2024-07-25 06:25 | Outpatient (REF) | payer OTHER, SELFPAY ==
[2024-07-25 10:48] LABS: Alanine Aminotransferase 54 U/L (0-40); Albumin Level 4.4 g/dL (3.5-5.0); Alkaline Phosphatase 50 U/L (39-117); Anion Gap 12 (12-20); Aspartate Amino Transferase 32 U/L (5-37); Bilirubin Total 0.4 mg/dL (0.0-1.0); Blood Urea Nitrogen 10 mg/dL (9-16); Calcium 9.4 mg/dL (8.4-10.2); Carbon Dioxide 28 mmol/L (22-29); Chloride 105 mmol/L (96-108); Cholesterol 252 mg/dL (<200); Estimated Glomerular Filt Rate > 60; Glucose Fasting 88 mg/dL (60-99); HDL Cholesterol 52 mg/dL (>40); LDL Cholesterol Calculated 136 mg/dL (<100); Potassium 3.9 mmol/L (3.3-5.1); Sodium 141 mmol/L (135-145); Total Protein 6.9 g/dL (6.5-8.0); Triglycerides 321 mg/dL (<150)
== END 2024-07-25 06:26 | disposition home or self-care (01) ==
LOC: HO.HMGCLDS 06:25
PROVIDERS: PCP Internal Medicine; Visit Provider Internal Medicine
DX: R10.32 Left lower quadrant pain (principal); K64.4 Residual hemorrhoidal skin tags; E78.5 Hyperlipidemia, unspecified
CPT/HCPCS: 36415; 80053; 80061

== ENCOUNTER 2024-07-25 14:55 | Outpatient (AMB) | payer OTHER, SELFPAY ==
--- NOTE | 2024-07-25 14:58 | MHC.OFFVIS ---
Vital Signs 07/25/24 15:03 Height 6 ft Weight 201 lb BMI 27.3 BP 142/92 H Blood Pressure Location Rt brachial Position Sitting Pulse 91 Intake Visit Reasons: CT results from 05-29 Intake Note: Patient scheduled today to discuss results of CT Abdomen/ pelvis dated 05-29-2024. Patient c/o: lt groin discomfort. Denies pain. Feels uncomfortable when wearing belt. Environmental Marketing Representative Required: No Accompanied by: Self / Same As Patient Allergies No Known Allergies Allergy (Verified 07/25/24 15:04) Medication List - Last Reconciled 07/25/24 by Prabhakar Figueroa MD hydrocortisone 2.5% (Proctosol HC) 1 appl [place] BID-QID PRN olmesartan 10 mg (2 x 5 mg) PO DAILY pravastatin 40 mg PO BEDTIME HPI HPI CT results from 05-29: Details: I had sent him for a CAT scan last May because of his complains of chronic pain in the left lower quadrant and left groin area. He says he has occasionally sharp pain on the left lower quadrant area. He denies GI complaints. He denies nausea or vomiting. Denies any palpable mass. [facility] Medical History Left groin pain Surgical History S/P hernia surgery Family History Father CAD (coronary artery disease), Onset Age: 75 Mother No problems noted. Social History Household Members Other:: , 4 adult children, Housing: House Patient Tobacco Use Status: Former Tobacco user e-Cigarette/Vaping Use: Never Used service: No Current occupational status: employed Current occupation: [employer] Cognitive needs: No Hearing needs: No Vision needs: No Review of Systems Const Denies chills and Denies fever(s) Card Denies chest pain, Denies dyspnea and Denies dyspnea on exertion Resp Denies cough, Denies dyspnea and Denies dyspnea on exertion GI Denies hematochezia and Denies change in bowel habits Denies hematuria and Denies difficulty urinating Musc Denies back pain and Denies limited range of motion Neuro Denies focal weakness and Denies convulsions Psych Denies depression and Denies mood swings Physical Exam Vital Signs: Last Vital Signs Pulse 91 07/25/24 15:03 BP 142/92 H 07/25/24 15:03 BMI result Body Mass Index 27.3 Const General: comfortable and no acute distress Orientation/consciousness: patient oriented x3 Neck Neck: Yes no lymphadenopathy Resp Auscultation: clear to auscultation bilaterally Cardio Rhythm: regular rhythm GI Other: No palpable inguinal hernia, no palpable masses Palpation (GI): Soft to palpation, nontender and no guarding Neuro General: patient oriented x3 Assessment & Plan Assessment & Plan (1) Left groin pain: Code(s): R10.32 - Left lower quadrant pain Category: Medical Plan: His CAT scan does not show any pathology in the left lower quadrant of the groin areas. There is no hernia seen. There is no mass or any inflammatory process I explained this finding to him. I assured him that there is no evidence of any hernia on the groin or any intra-abdominal pathology. His pain may likely be secondary to a musculoskeletal origin He can therefore follow up with me on a p.r.n. basis. Coding Level of Care Code Est Pt Level 3 (35965) Diagnoses Left groin pain R10.32
[2024-07-25 15:03] VITALS: BP 142/92; PULSE 91; BMI 27.3
--- OUTSIDE RECORDS SUMMARY | 2024-07-25 15:43 | XMS_ITS | Clinical Summary ---
Author Organization [employer] Address [address] [place] [id number] Care Team Providers Care Muffle Worker Name Role Phone No, Pcp Primary [...] on file Legal Sex Male 9:16 AM [facility] Gender Identity Not on file Sexual Orientation [...] Weight 87.5 kg (192 lb 12.8 oz) 10/13/2 021 11:15 AM EDT Height 184.8 cm [...] of 2) 09/26/2023 COVID-19 Vaccine (1 - season) 2023 Influenza Vaccine (Season Ended) 2024 RSV Vaccine (SCDM) (1 - 1-dose 75+ series) 2048 Insurance [employer] Care Teams Muffle Worker Relationship Specialty Start Date End Date No, Pcp PCP - General 03/28/20
== END 2024-07-25 15:14 | disposition home or self-care (01) ==
LOC: HO.HGS 14:56
PROVIDERS: PCP Internal Medicine; Visit Provider Surgery
DX: R10.32 Left lower quadrant pain (principal)
CPT/HCPCS: 99213

== ENCOUNTER 2024-07-26 14:15 | Outpatient (AMB) | payer OTHER, SELFPAY ==
[2024-07-26 14:46] VITALS: BP 118/74; PULSE 93; RESP 18; O2SAT 98; BMI 27.4
--- NOTE | 2024-07-26 14:46 | MHC.PC.OV ---
Vital Signs 07/26/24 14:46 Height 6 ft Weight 202 lb BMI 27.4 BP 118/74 Blood Pressure Location Rt brachial Position Sitting Respiration 18 Pulse 93 Pulse Source Pulse Oximeter Pulse Oximetry (%) 98 Oxygen Delivery Method Room Air Intake Visit Reasons: 2m follow up Intake Note: Pt is here today for 2 months follow up visit on labs and BP. Allergies No Known Allergies Allergy (Verified 07/25/24 15:04) Medication List - Last Reconciled 07/26/24 by Carmen Flores MD hydrocortisone 2.5% (Proctosol HC) 1 appl VT BID-QID PRN olmesartan 10 mg (2 x 5 mg) PO DAILY pravastatin 40 mg PO BEDTIME Tobacco use date assessed: 07/26/24 Dental Screening Dental Screen Date: 03/28/24 HPI 2m follow up HPI Details Patient presents for the follow-up of hypertension hyperlipidemia. [facility] Medical History (Updated 07/26/24 @ 16:34 by Carmen Flores MD) External bleeding hemorrhoids HTN (hypertension) LVH (left ventricular hypertrophy) Hyperlipidemia Left groin pain Surgical History S/P hernia surgery Family History Father CAD (coronary artery disease), Onset Age: 75 Mother No problems noted. Social History Household Members Other:: , 4 adult children, Housing: House Patient Tobacco Use Status: Former Tobacco user e-Cigarette/Vaping Use: Never Used service: No Current occupational status: employed Current occupation: [employer] Cognitive needs: No Hearing needs: No Vision needs: No Questionnaire PHQ-9 Over the last 2 weeks, how often have you been bothered by any of the following problems? 1. Little interest or pleasure in doing things: nearly every day Source: Developed by Drs. Ryder Khan, Linda Richardson, Axel Deluna and colleagues, with an educational marcial from [employer]. Thrive Questionnaire Date Thrive assessed: 03/23/24 I am a: Patient What is your living situation today?: I have a steady place to live Within the past 12 months, did the food you bought not last and you didn't have the money to get more?: I choose not to answer this question Within the past 12 months, did you worry whether your food would run out before you got money to buy more?: I choose not to answer this question Do you have trouble paying for medicines?: No Do you have trouble getting transportation to medical appointments?: No Do you have trouble paying your heating and electricity bill?: No Do you have trouble taking care of your child, family member or friend?: No Do you have trouble with day-to-day activities such as bathing, preparing meals, shopping, managing finances, etc.?: No Are you currently unemployed and looking for a job?: No Are you interested in more education?: No THRIVE Score: 0 RICARDO-7 AMB Questionnaire RICARDO-7 Date RICARDO - 7 assessed: 03/28/24 Source: Developed by Drs. Ryder Khan, Linda Richardson, Axel Deluna and colleagues, with an educational marcial from [employer]. Review of Systems Const All systems reviewed & are unremarkable except as noted in HPI and below Eyes Reports no additional complaints ENT Reports no additional complaints Card Reports no additional complaints Resp Reports no additional complaints GI Reports no additional complaints Reports no additional complaints Physical exam (Primary Care) Vital Signs: Last Vital Signs Pulse 93 07/26/24 14:46 Resp 18 07/26/24 14:46 BP 118/74 07/26/24 14:46 Pulse Ox 98 07/26/24 14:46 Oxygen Delivery Method Room Air 07/26/24 14:46 BMI result Body Mass Index 27.4 Tobacco/Smoking Status: Tobacco use Status Tobacco use date assessed 07/26/24 07/26/24 14:52 Patient Tobacco Use Status Former Tobacco user 07/26/24 14:50 e-Cigarette/Vaping Use Never Used 07/26/24 14:50 Thrive Assessment: Date of Thrive Assessment Date Thrive assessed 03/23/24 07/26/24 14:50 Const General: no acute distress HENMT Head: Yes normal to inspection Face and sinus: Yes normal facial exam Eyes General: appearance normal, both eyes and all related structures Neck Neck: Yes supple Resp Effort & Inspection: normal respiratory effort Auscultation: clear to auscultation bilaterally Cardio Rhythm: regular rhythm Heart sounds: S1 normal heart sound present and S2 normal heart sound present GI Inspection: Yes normal to inspection Palpation (GI): Soft to palpation Percussion: Yes normal to percussion Auscultation: normal bowel sounds Coding Level of Care Code Est Pt Level 4 (11465) Diagnoses HTN (hypertension) I10 Hyperlipidemia E78.5 External bleeding hemorrhoids K64.4 Assessment & Plan Assessment & Plan (1) HTN (hypertension): Code(s): I10 - Essential (primary) hypertension Category: Medical Plan: Continue olmesartan (2) Hyperlipidemia: Code(s): E78.5 - Hyperlipidemia, unspecified Category: Medical Plan: Change pravastatin to atorvastatin 40 mg a day, check lipid profile in 3 months (3) External bleeding hemorrhoids: Comment: saw colorectal surgeon> 8 yrs. referred to GI for colonoscopy 04/23 Code(s): K64.4 - Residual hemorrhoidal skin tags Category: Medical Plan: Refer to GI for colonoscopy Orders: Orders Lipid Panel 3 Months E78.5 - Hyperlipidemia, unspecified, I10 - Essential (primary) hypertension Comprehensive [place]. Panel Fast 3 Months E78.5 - Hyperlipidemia, unspecified, I10 - Essential (primary) hypertension Complete Blood Count Auto Diff 3 Months E78.5 - Hyperlipidemia, unspecified, I10 - Essential (primary) hypertension Referrals Gastroenterology Referral Z00.00 - Encounter for general adult medical examination without abnormal findings Medications: New atorvastatin 40 mg PO DAILY 90 tabs 1RF lorazepam 1 tabl 1 hr before fight 0.5 mg PO DAILY PRN 10 tabs 0RF anxiety Discontinued pravastatin Discontinued Reason: Doctor's Order 40 mg PO BEDTIME 90 tabs 0RF
== END 2024-07-26 15:21 | disposition home or self-care (01) ==
LOC: HO.HMCC 14:16
PROVIDERS: PCP Internal Medicine; Visit Provider Internal Medicine
DX: I10 Essential (primary) hypertension (principal); E78.5 Hyperlipidemia, unspecified; K64.4 Residual hemorrhoidal skin tags

== ENCOUNTER → 2024-07-26 14:15 | Outpatient (BNVA) | payer OTHER, SELFPAY | PROVIDERS: PCP Internal Medicine; Visit Provider Internal Medicine ==

== ENCOUNTER 2024-10-20 08:37 | Outpatient (REF) | payer OTHER, SELFPAY ==
[2024-10-20 11:08] LABS: MANUAL DIFF FLAG NO
[2024-10-20 11:16] LABS: Hematocrit 38.7 % (42.0-52.0); Hemoglobin 12.3 g/dl (14.0-18.0); Imm Gran Abs Auto 0.01 X10*3/uL (0.00-0.03); Imm Gran Pct Auto 0.2 % (0.0-0.4); Lymphocytes Absolute Auto 1.8 X10*3/uL (1.2-4.9); Mean Corpuscular HGB Conc 31.8 g/dl (31.0-36.0); Mean Corpuscular Hemoglobin 26.4 pg (27.0-33.0); Mean Corpuscular Volume 83.0 fL (80.0-98.0); NRBC Abs Auto 0.000 X10*3/uL (0.0-0.012); NRBC Pct Auto 0.0 /100WBC (0.0-0.2); Platelet Count 232 X10*3/uL (160-400); Red Blood Count 4.66 X10*6/uL (4.60-5.80); White Blood Count 5.1 X10*3/uL (4.8-10.8)
[2024-10-20 12:02] LABS: Alanine Aminotransferase 40 U/L (0-40); Albumin Level 4.4 g/dL (3.5-5.0); Alkaline Phosphatase 63 U/L (39-117); Anion Gap 14 (12-20); Aspartate Amino Transferase 28 U/L (5-37); Blood Urea Nitrogen 13 mg/dL (9-16); Calcium 9.5 mg/dL (8.4-10.2); Carbon Dioxide 26 mmol/L (22-29); Chloride 106 mmol/L (96-108); Cholesterol 150 mg/dL (<200); Estimated Glomerular Filt Rate > 60; HDL Cholesterol 55 mg/dL (>40); Potassium 4.2 mmol/L (3.3-5.1); Sodium 142 mmol/L (135-145); Total Protein 6.8 g/dL (6.5-8.0); Triglycerides 147 mg/dL (<150)
== END 2024-10-20 08:38 | disposition home or self-care (01) ==
LOC: HO.HMGCLDS 08:37
PROVIDERS: PCP Internal Medicine; Visit Provider Internal Medicine
DX: E78.5 Hyperlipidemia, unspecified (principal); I10 Essential (primary) hypertension
CPT/HCPCS: 36415; 80053; 80061; 85025

== ENCOUNTER 2024-10-22 13:47 | Outpatient (AMB) | payer OTHER, SELFPAY ==
[2024-10-22 14:01] VITALS: BP 122/70; PULSE 87; O2SAT 98; BMI 27.0
--- NOTE | 2024-10-22 14:01 | A.OFFPC_ITS ---
Vital Signs 10/22/24 14:01 Height 6 ft Weight 199 lb BMI 27.0 BP 122/70 Blood Pressure Location Lt brachial Position Sitting Pulse 87 Pulse Source Pulse Oximeter Pulse Oximetry (%) 98 Intake Visit Reasons: 3 months f/up Allergies No Known Allergies Allergy (Verified 10/22/24 14:01) Medication List - Last Reconciled 10/22/24 by Carmen Flores MD hydrocortisone 2.5% (Proctosol HC) 1 appl ID BID-QID PRN lorazepam 0.5 mg PO DAILY PRN olmesartan 10 mg (2 x 5 mg) PO DAILY rosuvastatin (Crestor) 20 mg PO DAILY Tobacco use date assessed: 07/26/24 Dental Screening Dental Screen Date: 03/28/24 HPI 3 months f/up HPI Details Patient presents for the follow-up on hypertension hyperlipidemia controlled on current medications [facility] Medical History External bleeding hemorrhoids HTN (hypertension) LVH (left ventricular hypertrophy) Hyperlipidemia Left groin pain Surgical History S/P hernia surgery Family History Father CAD (coronary artery disease), Onset Age: 75 Mother No problems noted. Social History Household Members Other:: , 4 adult children, Housing: House Patient Tobacco Use Status: Former Tobacco user e-Cigarette/Vaping Use: Never Used service: No Current occupational status: employed Current occupation: [employer] Cognitive needs: No Hearing needs: No Vision needs: No Questionnaire Thrive Questionnaire Date Thrive assessed: 03/23/24 I am a: Patient What is your living situation today?: I have a steady place to live Within the past 12 months, did the food you bought not last and you didn't have the money to get more?: I choose not to answer this question Within the past 12 months, did you worry whether your food would run out before you got money to buy more?: I choose not to answer this question Do you have trouble paying for medicines?: No Do you have trouble getting transportation to medical appointments?: No Do you have trouble paying your heating and electricity bill?: No Do you have trouble taking care of your child, family member or friend?: No Do you have trouble with day-to-day activities such as bathing, preparing meals, shopping, managing finances, etc.?: No Are you currently unemployed and looking for a job?: No Are you interested in more education?: No THRIVE Score: 0 RICARDO-7 AMB Questionnaire RICARDO-7 Date RICARDO - 7 assessed: 03/28/24 Source: Developed by Drs. Ryder Khan, Linda Richardson, Axel Deluna and colleagues, with an educational marcial from [employer]. Review of Systems Const All systems reviewed & are unremarkable except as noted in HPI and below Eyes Reports no additional complaints ENT Reports no additional complaints Card Reports no additional complaints Resp Reports no additional complaints GI Reports no additional complaints Reports no additional complaints Physical exam (Primary Care) Vital Signs: Last Vital Signs Pulse 87 10/22/24 14:01 BP 122/70 10/22/24 14:01 Pulse Ox 98 10/22/24 14:01 BMI result Body Mass Index 27.0 Tobacco/Smoking Status: Tobacco use Status Tobacco use date assessed 07/26/24 10/22/24 14:04 Patient Tobacco Use Status Former Tobacco user 10/22/24 14:04 e-Cigarette/Vaping Use Never Used 10/22/24 14:04 Thrive Assessment: Date of Thrive Assessment Date Thrive assessed 03/23/24 10/22/24 14:04 Const General: no acute distress HENMT Head: Yes normal to inspection Mouth: Normal oral and palatal mucosa present Resp Effort & Inspection: normal respiratory effort Auscultation: clear to auscultation bilaterally Cardio Rhythm: regular rhythm Heart sounds: S1 normal heart sound present and S2 normal heart sound present GI Inspection: Yes normal to inspection Coding Level of Care Code Est Pt Level 4 (28559) Diagnoses Anemia D64.9 Hyperlipidemia E78.5 HTN (hypertension) I10 Assessment & Plan Assessment & Plan (1) Anemia: Code(s): D64.9 - Anemia, unspecified Category: Medical Plan: For borderline anemia check iron studies and B12 level (2) Hyperlipidemia: Code(s): E78.5 - Hyperlipidemia, unspecified Category: Medical Plan: Continue crestor (3) HTN (hypertension): Code(s): I10 - Essential (primary) hypertension Category: Medical Plan: Continue olmesartan , follow-up in 6 months with a fasting labs before Orders: Orders Vitamin B12 and Folate Today D64.9 - Anemia, unspecified Complete Blood Count Auto Diff 3 Months D64.9 - Anemia, unspecified Comprehensive [place]. Panel Fast 6 Months D64.9 - Anemia, unspecified, E78.5 - Hyperlipidemia, unspecified, I10 - Essential (primary) hypertension Lipid Panel 6 Months D64.9 - Anemia, unspecified, E78.5 - Hyperlipidemia, unspecified, I10 - Essential (primary) hypertension UA w Microscopic 6 Months D64.9 - Anemia, unspecified, E78.5 - Hyperlipidemia, unspecified, I10 - Essential (primary) hypertension IRON PROFILE Today D64.9 - Anemia, unspecified Complete Blood Count Auto Diff 6 Months D64.9 - Anemia, unspecified, E78.5 - Hyperlipidemia, unspecified, I10 - Essential (primary) hypertension IRON PROFILE 6 Months D64.9 - Anemia, unspecified, E78.5 - Hyperlipidemia, unspecified, I10 - Essential (primary) hypertension PSA,Total (Free>4and<10) 6 Months D64.9 - Anemia, unspecified, E78.5 - Hyperlipidemia, unspecified, I10 - Essential (primary) hypertension Medications: Refilled rosuvastatin (Crestor) 20 mg PO DAILY 90 tabs 3RF
--- OUTSIDE RECORDS SUMMARY | 2024-10-22 15:06 | XMS_ITS | Clinical Summary ---
Author Organization [facility] Address [address] [place] [id number] Care Team Providers Care Bottom Liquor Attendant Name Role Phone No, Pcp Primary Care [...] on file Legal Sex Male 9:16 AM [facility] Gender Identity Not on file Sexual Orientation Not on file Last Filed Vital Signs Vital Sign Reading Time Taken Comments Blood Pressure 152/95 12/10/2020 11:15 AM EDT Pulse 82 12/10/2020 11:15 AM EDT Temperature 36.3 C (97.4 F) 12/10/2020 11:15 AM EDT Respiratory Rate 14 03/28/2020 11:4 [...] - 2023- season) 2023 Influenza Vaccine (#1) 2024 RSV Vaccine (SCDM) (1 - 1-dose 75+ series) 2048 Insurance [employer] Care Teams Bottom Liquor Attendant Relationship Specialty Start Date End Date No, Pcp PCP - General 03/28/20
== END 2024-10-22 14:40 | disposition home or self-care (01) ==
LOC: HO.HMCC 13:48
PROVIDERS: PCP Internal Medicine; Visit Provider Internal Medicine
DX: D64.9 Anemia, unspecified (principal); E78.5 Hyperlipidemia, unspecified; I10 Essential (primary) hypertension

== ENCOUNTER 2025-02-11 07:51 | Day surgery (SDC) | payer OTHER, SELFPAY ==
--- NOTE | 2025-02-07 10:32 | HO.ANESPROP2 ---
Documented by User: Mariangel Workman NP 02/07/25 10:33 HPI - Anesthesia Eval Consult details Narrative: 49yo M for Colonoscopy PMFSH Active Problems Active Problems: All Active Problems Anemia (Acute) Migraine (Acute) Hyperlipidemia (Acute) Left groin pain (Acute) Inguinal hernia (Acute) LVH (left ventricular hypertrophy) (Acute) HTN (hypertension) (Acute) External bleeding hemorrhoids (Acute) Hx of colonoscopy (Acute) S/P hernia surgery (Acute) Annual physical exam (Acute) Dysplastic nevi (Acute) Past Medical History Medical History External bleeding hemorrhoids HTN (hypertension) LVH (left ventricular hypertrophy) Hyperlipidemia Left groin pain Family History Family History Father CAD (coronary artery disease), Onset Age: 75 Mother No problems noted. Surgical History Surgical History S/P hernia surgery Social History Social History Household Members Other:: , 4 adult children, Housing: House Patient Tobacco Use Status: Former Tobacco user e-Cigarette/Vaping Use: Never Used Use of substances other than those prescribed or required for medical reasons: No Advance Directives: No Advance Directives Information Provided: Yes service: No Current occupational status: employed Current occupation: [employer] Cognitive needs: No Hearing needs: No Vision needs: No Meds Allergies Allergy/AdvReac Type Severity Reaction Status Date / Time No Known Allergies Allergy Verified 10/22/24 14:01 Home Medications ?Medication ?Instructions ?Recorded ?Confirmed ?Last Taken ?Type olmesartan 5 mg tablet 10 mg PO BID 02/07/25 02/07/25 Unknown History Exam Narrative Narrative: ECHO 2023 Conclusions: - Essentially normal study Assessment and Plan Assessment Anesthesia Assessment: Chart Reviewed Documented by User: Nathalie Swan MD 02/11/25 09:40 [facility] Past Medical History Medical History External bleeding hemorrhoids HTN (hypertension) LVH (left ventricular hypertrophy) Hyperlipidemia Left groin pain Family History Family History Father CAD (coronary artery disease), Onset Age: 75 Mother No problems noted. Surgical History Surgical History S/P hernia surgery History of Problems with Anesthesia: No Social History Social History Household Members Other:: , 4 adult children, Housing: House Patient Tobacco Use Status: Former Tobacco user e-Cigarette/Vaping Use: Never Used Use of substances other than those prescribed or required for medical reasons: No Advance Directives: No Advance Directives Information Provided: Yes service: No Current occupational status: employed Current occupation: [employer] Cognitive needs: No Hearing needs: No Vision needs: No Meds Allergies Allergy/AdvReac Type Severity Reaction Status Date / Time No Known Allergies Allergy Verified 10/22/24 14:01 Home Medications ?Medication ?Instructions ?Recorded ?Confirmed ?Last Taken ?Type olmesartan 5 mg tablet 10 mg PO BID 02/07/25 02/07/25 Unknown History Exam Airway Mallampati Class: III TM Dist: >3cm Neck ROM: Full Partial: Upper Loose/Missing/Broken Teeth: Yes and Upper Heart: RRR Lungs: CTA Assessment and Plan Assessment Anesthesia Assessment: Anesthesia Plan Discussed Final Anesthetic Review History of Problems with Anesthesia: No NPO: Yes ASA Class: II Final Preanesthetic Review: Meds/Allgs Chart Reviewed, Consent Obtained/Reviewed and Anes Risks/Benef Reviewed Patient Risk: Low Procedure Risk: Low Anesthetic Plan Anesthetic Plan: MAC: Disposition: Standard PACU
[2025-02-07 13:55] VITALS: BMI 26.7
[2025-02-11 09:05] VITALS: BMI 26.6
[2025-02-11 09:16] VITALS: BP 165/86; PULSE 106; RESP 16; TEMP 36.8; O2SAT 99
[2025-02-11] MEDS: Lactated Ringers 1,000 ML 100 ML IVCONT (09:18)
[2025-02-11 10:28] VITALS: BP 108/65; PULSE 91; RESP 18; TEMP 36.6; O2SAT 99
[2025-02-11 10:30] VITALS: BP 106/67; PULSE 83; RESP 18; O2SAT 99
--- NOTE | 2025-02-11 10:32 | PM.OP ---
Brief Operative Note Date of Service: 02/11/25 Pre-op diagnosis: Screening Post-op diagnosis: other (Cecal polyp) Procedure: Colonoscopy to the cecum and TI with hot snare polypectomy of cecal polyp, but the specimen was not recovered Surgeon: Ryder Hinojosa MD Anesthesia: MAC Was an Cigarette Package Examiner used for this Procedure?: No Estimated blood loss (mL): 2.0 Pathology: none sent Condition: stable Disposition: PACU
[2025-02-11 10:45] VITALS: BP 115/76; PULSE 78; RESP 18; O2SAT 100
--- NOTE | 2025-02-11 11:05 | OP_ITS ---
DATE OF SERVICE: 02/11/2025 SURGEON: Ryder Hinojosa MD PREOPERATIVE DIAGNOSIS: Colorectal cancer screening. POSTOPERATIVE DIAGNOSIS: Colorectal cancer screening, cecal polyp, diverticulosis, and prominent internal hemorrhoids. PROCEDURE PERFORMED: Colonoscopy to the cecum and terminal ileum with hot snare polypectomy. The patient presents for evaluation of colorectal cancer screening. Full consent has been obtained from him for this, including risks of bleeding and perforation. ESTIMATED BLOOD LOSS: COMPLICATIONS: ANESTHESIA: Monitored anesthesia care. ASSISTANTS: SPECIMENS: DESCRIPTION OF PROCEDURE: The patient was placed in the left lateral decubitus postition. The digital rectal exam revealed some minimal external hemorrhoidal tissue. The Olympus video pediatric colonoscope was entered into the rectum, advanced easily to the cecum. Once in the cecum,I did identify cecal pouch with appendiceal orifice, a normal-appearing ileocecal panel. Ileum was cannulated and appeared normal. Scope was withdrawn back in the colon. The entire cecum was well visualized. In the cecum was an approximately 6 to 8 mm grossly adenomatous polyp, which was removed by hot snare polypectomy but not recovered. The polypectomy site had some initial oozing which was cauterized with the tip of the snare with good results. There was good hemostasis. The area was irrigated and observed for at least 5 to 10 minutes without further bleeding noted. The remainder of the cecum appeared normal. The scope was then slowly withdrawn assessing all mucosal surfaces carefully. Preparation was excellent. I did not visualize any other polyps, colitis, nor angiodysplasia. There was a mild amount of sigmoid diverticulosis. In the rectum, scope was retroflexed visualizing prominent and friable internal hemorrhoids, but no other pathology. The rectal mucosa appeared normal. The scope was straightened and withdrawn from the patient. He tolerated the procedure well and was returned to recovery area in stable condition. IMPRESSION: 1. Cecal polyp, status post hot snare polypectomy but not recovered. 2. Diverticulosis. 3. Prominent internal hemorrhoids. 4. Minimal external hemorrhoids. PLAN: The results of the pathology will be checked. I would recommend a repeat colonoscopy in 5 years for further screening and surveillance, even though the polyp's pathology will not be obtained, given its gross appearance that appeared to be grossly consistent with adenomatous polyp. I did advise him that if the hemorrhoids continued to intermittently bleed and are problematic, we could make a referral for him to see Dr. Figueroa. He was advised not to use any aspirin and NSAIDs for 1 week. He will otherwise see me as needed. MD BREE Vargas/SKYE / [id number] MTDD
== END 2025-02-11 11:16 | disposition home or self-care (01) ==
PROVIDERS: PCP Internal Medicine; Visit Provider Internal Medicine
PROC: 0DJD8ZZ Inspection of Lower Intestinal Tract, Via Natural or Artificial Opening Endoscopic (ICD-10-PCS; CPT 45378; principal; 2025-02-11 09:30)
DX: Z12.11 Encounter for screening for malignant neoplasm of colon (principal); K64.8 Other hemorrhoids; K57.30 Diverticulosis of large intestine without perforation or abscess without bleeding; K64.4 Residual hemorrhoidal skin tags; K63.5 Polyp of colon
CPT/HCPCS: 45385; J2003; J2250; J2704